=== PATIENT | male | born 1970 | race Caucasian/White ===

== ENCOUNTER 2018-04-02 17:05 | Observation (INO) | payer MEDICAID ==
[~2018-04-02] VITALS: Ht 182.9 cm; Wt 90.0 kg
[2018-04-02 17:10] VITALS: BP 130/84; PULSE 88; RESP 20; TEMP 97.4; O2SAT 100
[2018-04-02 17:23] VITALS: BP 129/85; PULSE 80; RESP 18; O2SAT 99
--- NOTE | 2018-04-02 18:02 | RADRPT ---
EXAM DATE: 04/02/2018 5:55 PM EDT AGE/SEX: 47 years / Male INDICATIONS: Left sided chest pain. CLINICAL DATA: This is the patient's initial encounter. Patient reports that signs and symptoms have been present for 1 day and indicates a pain score of 8/10. MEDICAL/SURGICAL HISTORY: None. None. COMPARISON: No prior exams available for comparison. FINDINGS: A single AP view of the chest demonstrates the lungs to be symmetrically aerated without evidence of mass, infiltrate or effusion. The cardiomediastinal contours are unremarkable. Osseous structures a re intact. There is an anterior cervical fusion plate present. CONCLUSION: No acute cardiopulmonary process. Electronically signed by: Tony Gresahm MD 04/02/2018 6:01 PM EDT
[2018-04-02 18:12] LABS: AUTOMATED NEUTROPHIL # 4.5 TH/MM3 (1.8-7.7); BASOPHIL % 0.3 % (0.0-2.0); EOSINOPHIL # 0.1 TH/MM3 (0-0.4); EOSINOPHIL % 2.1 % (0.0-4.0); HEMATOCRIT 42.5 % (39.0-51.0); HEMOGLOBIN 14.4 GM/DL (13.0-17.0); LYMPH % 24.7 % (9.0-44.0); LYMPHOCYTE # 1.7 TH/MM3 (1.0-4.8); MEAN CORPUSCULAR HEMOGLOBIN 30.2 PG (27.0-34.0); MEAN PLATELET VOLUME 8.8 FL (7.0-11.0); MONO % 6.7 % (0.0-8.0); MONOCYTE # 0.5 TH/MM3 (0-0.9); NEUT % 66.2 % (16.0-70.0); PLATELET COUNT 218 TH/MM3 (150-450); RED BLOOD COUNT 4.77 MIL/MM3 (4.50-5.90); RED CELL DISTRIBUTION WIDTH 12.6 % (11.6-17.2); WHITE BLOOD COUNT 6.9 TH/MM3 (4.0-11.0)
--- NOTE | 2018-04-02 18:25 | PD ---
HPI Chief Complaint: Neuro Symptoms/ Deficits Time Seen by Provider: 17:24 Travel History International Travel<30 days: No Contact w/Intl Traveler<30days: No Traveled to known affect area: No History of Present Illness HPI Patient presents to the emergency department complaining of chest pain and left- sided weakness. Chest pain began around noon/1 PM when he was sitting on a bench. Pain is described as being left-sided, nonradiating, 8 out of 10 no alleviating or aggravating factors, similar pain in the past and states that it was a stress attack. Also complained of left side being weak and tingling in his arms and legs. He has slurred speech, headache, dry cough, nausea, blurry vision bilaterally. He denies fever, chills, vomiting. PFSH Past Medical History High Cholesterol: Yes Cerebrovascular Accident: Yes Diabetes: Yes Patient Takes Glucophage: Yes Medical other: Yes (FIBROMYALGIA ) Past Surgical History Other Surgery: Yes Social History Alcohol Use: No Tobacco Use: No Substance Use: No Allergies-Medications (Allergen,Severity, Reaction): Coded Allergies: No Known Allergies (Unverified , 04/02/18) Reported Meds & Prescriptions Reported Meds & Active Scripts Active Reported Prazosin (Prazosin HCl) 5 Mg Cap 5 Mg PO HS Lyrica (Pregabalin) 300 Mg Cap 300 Mg PO BID Carbamazepine 200 Mg Tab 200 Mg PO HS Lamotrigine 200 Mg Tab 200 Mg PO DAILY Bupropion HCl 100 Mg Tab 300 Mg PO DAILY Metformin ER (Metformin HCl) 1,000 Mg Emily 1,000 Mg PO BID With evening meal Atorvastatin (Atorvastatin Calcium) 20 Mg Tab 20 Mg PO HS Duloxetine DR (Duloxetine HCl) 60 Mg Capdr 90 Mg PO DAILY Glimepiride 2 Mg Tab 2 Mg PO DAILY Take with breakfast or first main meal Prazosin (Prazosin HCl) 2 Mg Cap 2 Mg PO HS Review of Systems Except as stated in HPI: all other systems reviewed are Neg Physical Exam Narrative GENERAL: No acute distress. SKIN: Focused skin assessment warm/dry. HEAD: Atraumatic. Normocephalic. EYES: Pupils equal and round. No scleral icterus. No injection or drainage. Ocular muscles intact bilaterally. ENT: No nasal bleeding or discharge. Mucous membranes pink and moist. NECK: Trachea midline. No JVD. CARDIOVASCULAR: Regular rate and rhythm. No murmur appreciated. RESPIRATORY: No accessory muscle use. Clear to auscultation. Breath sounds equal bilaterally. GASTROINTESTINAL: Abdomen soft, non-tender, nondistended. Hepatic and splenic margins not palpable. MUSCULOSKELETAL: No obvious deformities. No clubbing. No cyanosis. No edema. NEUROLOGICAL: Awake and alert. No obvious cranial nerve deficits. 3/5 left upper extremity and left lower extremity. Normal speech. PSYCHIATRIC: Appropriate mood and affect; insight and judgment normal. Data Data Last Documented VS Vital Signs Date Time Temp Pulse Resp B/P (MAP) Pulse Ox O2 Delivery O2 Flow Rate FiO2 04/02/18 17:23 80 18 129/85 (100) 99 Room Air 04/02/18 17:10 97.4 Orders Orders Electrocardiogram (04/02/18 ) Electrocardiogram (04/02/18 17:30) Prothrombin Time / Inr (Pt) (04/02/18 17:30) Act Partial Throm Time (Ptt) (04/02/18 17:30) Complete Blood Count With Diff (04/02/18:30) Comprehensive Metabolic Panel (04/02/18 17:30) Creatine Kinase (Cpk) (04/02/18 17:30) Troponin I (04/02/18 17:30) Urinalysis - C+S If Indicated (04/02/18 17:30) Ct Brain W/O Iv Contrast(Rout) (04/02/18 17:30) Chest, Single Ap (04/02/18 17:30) Ecg Monitoring (04/02/18 17:30) Iv Access Insert/Monitor (04/02/18 17:30) Oximetry (04/02/18 17:30) Blood Glucose (04/02/18 17:30) Aspirin (Aspirin) (04/02/18 19:00) Nitroglycerin Sl (Nitrostat Sl) (04/02/18 19:00) Admit Order (Ed Use Only) (04/02/18 19:23) Labs Laboratory Tests Test 04/02/18 17:42 White Blood Count 6.9 TH/MM3 Red Blood Count 4.77 MIL/MM3 Hemoglobin 14.4 GM/DL Hematocrit 42.5 % Mean Corpuscular Volume 89.0 FL Mean Corpuscular Hemoglobin 30.2 PG Mean Corpuscular Hemoglobin Concent 34.0 % Red Cell Distribution Width 12.6 % Platelet Count 218 TH/MM3 Mean Platelet Volume 8.8 FL Neutrophils (%) (Auto) 66.2 % Lymphocytes (%) (Auto) 24.7 % Monocytes (%) (Auto) 6.7 % Eosinophils (%) (Auto) 2.1 % Basophils (%) (Auto) 0.3 % Neutrophils # (Auto) 4.5 TH/MM3 Lymphocytes # (Auto) 1.7 TH/MM3 Monocytes # (Auto) 0.5 TH/MM3 Eosinophils # (Auto) 0.1 TH/MM3 Basophils # (Auto) 0.0 TH/MM3 CBC Comment DIFF FINAL Differential Comment Prothrombin Time 10.0 SEC Prothromb Time International Ratio 1.0 RATIO Activated Partial Thromboplast Time 27.0 SEC Blood Urea Nitrogen 10 MG/DL Creatinine 0.67 MG/DL Random Glucose 102 MG/DL Total Protein 7.7 GM/DL Albumin 4.3 GM/DL Calcium Level 9.2 MG/DL Alkaline Phosphatase 119 U/L Aspartate Amino Transf (AST/SGOT) 10 U/L Alanine Aminotransferase (ALT/SGPT) 21 U/L Total Bilirubin 0.4 MG/DL Sodium Level 137 MEQ/L Potassium Level 3.7 MEQ/L Chloride Level 103 MEQ/L Carbon Dioxide Level 22.6 MEQ/L Anion Gap 11 MEQ/L Estimat Glomerular Filtration Rate 127 ML/MIN Total Creatine Kinase 43 U/L Troponin I LESS THAN 0.02 NG/ML MDM Medical Decision Making Medical Screen Exam Complete: Yes Emergency Medical Condition: Yes Interpretation(s) ECG: Sinus rhythm, rate 79, normal axis, and aVL, T-wave inversion in lead III and V1, LVH Labs: Normal CBC, coags, alk phos increased Last Impressions Head CT 04/02/181729 Signed Impressions: CONCLUSION: 1. No acute intracranial abnormality. Chest X-Ray 04/02/181729 Signed Impressions: CONCLUSION: No acute cardiopulmonary process. Differential Diagnosis ACS, TIA, CVA, ICH, Narrative Course Patient presents to the emergency department complaining of left-sided chest pain and left-sided weakness. Patient placed on school lunch monitor, IV access obtained, head CT/EKG/chest x-ray/labs ordered. 1847: Workup resulted. Patient complaining of L side chest pain, will give ASA 325mg po and 1 SL NTG 0.4mg. Will admit. U/A outstanding. 1917: Reassessment, strength 5/5 LUE and LLE, improved from prior exam. Patient requesting to eat b/c "I haven't eaten all day." Diagnosis Primary Impression: Chest pain Qualified Codes: R07.9 - Chest pain, unspecified Additional Impression: Left-sided weakness Admitting Information Admitting Physician Requests: Observation Condition: Stable Xin Gonzalez MD Apr 02, 2018 18:25
[2018-04-02 18:28] LABS: ALBUMIN 4.3 GM/DL (3.4-5.0); ALT (GPT) 21 U/L (12-78); AST (GOT) 10 U/L (15-37); BLOOD UREA NITROGEN 10 MG/DL (7-18); CALCIUM 9.2 MG/DL (8.5-10.1); CREATININE 0.67 MG/DL (0.60-1.30); GLOMERULAR FILTRATION RATE 127 ML/MIN (>89); GLUCOSE,RANDOM 102 MG/DL (74-106); SODIUM (NA) 137 MEQ/L (136-145)
[2018-04-02 18:29] LABS: BICARBONATE 22.6 MEQ/L (21.0-32.0); CHLORIDE 103 MEQ/L (98-107)
[2018-04-02 18:33] LABS: ALKALINE PHOSPHATASE 119 U/L (45-117); TOTAL BILIRUBIN ADULT 0.4 MG/DL (0.2-1.0); TOTAL PROTEIN 7.7 GM/DL (6.4-8.2); TROPONIN I LESS THAN 0.02 NG/ML (0.02-0.05)
--- NOTE | 2018-04-02 18:33 | RADRPT ---
EXAM DATE: 04/02/2018 6:30 PM EDT AGE/SEX: 47 years / Male INDICATIONS: Cephalgia, left sided numbness, and tingling, blurry vision. CLINICAL DATA: This is the patient's initial encounter. Patient reports that signs and symptoms have been present for 1 day and indicates a pain score of 8/10. MEDICAL/SURGICAL HISTORY: Cerebrovascular disease. Fibromyalgia. None. RADIATION DOSE: 66.34 CTDI (mGy) COMPARISON: No prior exams available for comparison. TECHNIQUE: CT of the head without contrast. Using automated exposure control and adjustment of the mA and/or kV according to patient size, radiation dose was kept as low as reasonably achievable to ob tain optimal diagnostic quality images. DICOM format image data is available electronically for revi ew and comparison. FINDINGS: Cerebrum: The ventricles are normal for age. No evidence of midline shift, mass lesion, hemorrhage or acute infarction. No extraaxial fluid collections are seen. Posterior Fossa: The cerebellum and brainstem are intact. The 4th ventricle is midline. The cerebe llopontine angle is unremarkable. Extracranial: The visualized portion of the orbits is intact. Soft tissue density left parietal scal p likely small contusion. Skull: The calvaria is intact. No evidence of skull fracture. CONCLUSION: 1. No acute intracranial abnormality. Electronically signed by: Adam Momin MD 04/02/2018 6:32 PM EDT
[2018-04-02] MEDS ORDERED: BUPR100T4 PO (18:49)
[2018-04-02] MEDS ORDERED: LAMO200T PO (18:49)
[2018-04-02] MEDS ORDERED: GLIM2TAB PO (18:49)
[2018-04-02] MEDS ORDERED: CARB200T PO (18:49)
[2018-04-02] MEDS ORDERED: METF-382 PO (18:49)
[2018-04-02] MEDS ORDERED: ATOR20TA15 PO (18:49)
[2018-04-02] MEDS ORDERED: PRAZ2CAP PO (18:49)
[2018-04-02] MEDS ORDERED: DULO1CAP3 PO (18:49)
[2018-04-02] MEDS ORDERED: PRAZ5CAP PO (18:49)
[2018-04-02] MEDS ORDERED: PREG300 PO (18:49)
[2018-04-02] MEDS ORDERED: NITROGLYCERIN 0.4 MG SL 25 TABS/BTL SL ONE (19:00)
[2018-04-02] MEDS ORDERED: ASPIRIN 325 MG TAB PO ONE (19:00)
[2018-04-02 19:56] VITALS: BP 121/62; PULSE 85; RESP 18; O2SAT 98
[2018-04-02] MEDS ORDERED: ACETAMINOPHEN 325 MG TAB PO PRN (20:15)
[2018-04-02] MEDS ORDERED: NALOXONE HCL 0.4 MG/ML AMP IV PUSH PRN (20:15)
[2018-04-02] MEDS ORDERED: SODIUM CHLORIDE 0.9% FLUSH 10 ML FLUSH IV FLUSH PRN ×2 (20:15→20:30)
[2018-04-02 20:25] LABS: BILIRUBIN, URINE NEG (NEG); BLOOD, URINE NEG (NEG); GLUCOSE,URINE NEG (NEG); KETONE, URINE TRACE mg/dL (NEG); NITRITE,URINE NEG (NEG); URINE COLOR YELLOW (YELLW/STRAW); URINE LEUKOCYTE ESTERASE NEG (NEG)
[2018-04-02] MEDS ORDERED: DEXTROSE 50% IN WATER 50 ML VIAL(D50) IV PUSH PRN (20:30)
[2018-04-02] MEDS ORDERED: GLUCAGON 1 MG/ML VIAL OTHER PRN (20:30)
[2018-04-02 20:51] VITALS: BP 107/69; PULSE 75; RESP 16; TEMP 97.8; O2SAT 98
[2018-04-02] MEDS ORDERED: ATORVASTATIN 20 MG TAB PO SCH (21:00)
[2018-04-02] MEDS ORDERED: SODIUM CHLORIDE 0.9% FLUSH 10 ML FLUSH IV FLUSH SCH (21:00)
[2018-04-02] MEDS: INSULIN ASPART SUPPLEMENTAL SCALE SQ SCH (21:00)
[2018-04-02] MEDS ORDERED: carBAMazepine 200 MG TAB PO SCH (21:00)
--- NOTE | 2018-04-02 21:10 | HHI.HP ---
[facility] Service [facility] Primary Care Physician Non-Staff Admission Diagnosis chest pain, TIA vs CVA Diagnoses: Travel History International Travel<30 Days: No Contact w/Intl Traveler <30 Da: No Traveled to Known Affected Are: No History of Present Illness 47-year-old male with past medical history significant for fibromyalgia, diabetes mellitus, depression/anxiety and neuropathy presents the emergency department for the evaluation of left-sided chest pain and left-sided numbness/ tingling with associated weakness. The patient reports that he was in his usual state of health when suddenly he felt a numbness and tingling on his left side that was accompanied by the weakness and inability to use his left upper and lower extremities. He endorses accompanying blurry vision and a headache. Positive heart palpitations. He denies any shortness of breath. He does complain of left-sided chest pain that radiates down his left arm. No fever/ chills. No abdominal pain. Positive nausea. No vomiting or diarrhea. Review of Systems Except as stated in HPI: all other systems reviewed are Neg Past Family Social History Past Medical History Fibromyalgia Diabetes mellitus Neuropathy Depression/anxiety Past Surgical History Neck fusion Appendectomy Reported Medications Reported Meds & Active Scripts Active Reported Prazosin (Prazosin HCl) 5 Mg Cap 5 Mg PO HS Lyrica (Pregabalin) 300 Mg Cap 300 Mg PO BID Carbamazepine 200 Mg Tab 200 Mg PO HS Lamotrigine 200 Mg Tab 200 Mg PO DAILY Bupropion HCl 100 Mg Tab 300 Mg PO DAILY Metformin ER (Metformin HCl) 1,000 Mg Emily 1,000 Mg PO BID With evening meal Atorvastatin (Atorvastatin Calcium) 20 Mg Tab 20 Mg PO HS Duloxetine DR (Duloxetine HCl) 60 Mg Capdr 90 Mg PO DAILY Glimepiride 2 Mg Tab 2 Mg PO DAILY Take with breakfast or first main meal Prazosin (Prazosin HCl) 2 Mg Cap 2 Mg PO HS Allergies: Coded Allergies: No Known Allergies (Unverified , 04/02/18) Family History Mother with diabetes mellitus Social History Denies alcohol, tobacco and illicit drugs Physical Exam Vital Signs Vital Signs Date Time Temp Pulse Resp B/P (MAP) Pulse Ox O2 Delivery O2 Flow Rate FiO2 04/02/18 20:51 97.8 75 16 107/69 (82) 98 04/02/18 20:34 04/02/18 19:56 85 18 121/62 (81) 98 Room Air 04/02/18 17:23 80 18 129/85 (100) 99 Room Air 04/02/18 17:23 80 18 99 Room Air 04/02/18 17:10 97.4 88 20 130/84 (99) 100 Physical Exam GENERAL: male sitting up in bed SKIN: No rashes, ecchymoses or lesions. Cool and dry. HEAD: Atraumatic. Normocephalic. No temporal or scalp tenderness. EYES: Pupils equal round and reactive. Extraocular motions intact. No scleral icterus. No injection or drainage. ENT: Nose without bleeding, purulent drainage or septal hematoma. Throat without erythema, tonsillar hypertrophy or exudate. Uvula midline. Airway patent. NECK: Trachea midline. No JVD or lymphadenopathy. Supple, nontender, no meningeal signs. CARDIOVASCULAR: Regular rate and rhythm without murmurs, gallops, or rubs. RESPIRATORY: Clear to auscultation. Breath sounds equal bilaterally. No wheezes , rales, or rhonchi. GASTROINTESTINAL: Abdomen soft, non-tender, nondistended. No hepato-splenomegaly , or palpable masses. No guarding. MUSCULOSKELETAL: Extremities without clubbing, cyanosis, or edema. No joint tenderness, effusion, or edema noted. No calf tenderness. NEUROLOGICAL: Awake and alert. Cranial nerves II through XII intact. Normal speech. 4/5 left upper extremity strength in the biceps. Finger international recruiter strength and shoulder strength 5/5. Remainder of strength exam 5/5. Laboratory Laboratory Tests Test 04/02/18 17:42 04/02/18 19:58 White Blood Count 6.9 Red Blood Count 4.77 Hemoglobin 14.4 Hematocrit 42.5 Mean Corpuscular Volume 89.0 Mean Corpuscular Hemoglobin 30.2 Mean Corpuscular Hemoglobin Concent 34.0 Red Cell Distribution Width 12.6 Platelet Count 218 Mean Platelet Volume 8.8 Neutrophils (%) (Auto) 66.2 Lymphocytes (%) (Auto) 24.7 Monocytes (%) (Auto) 6.7 Eosinophils (%) (Auto) 2.1 Basophils (%) (Auto) 0.3 Neutrophils # (Auto) 4.5 Lymphocytes # (Auto) 1.7 Monocytes # (Auto) 0.5 Eosinophils # (Auto) 0.1 Basophils # (Auto) 0.0 CBC Comment DIFF FINAL Differential Comment Prothrombin Time 10.0 Prothromb Time International Ratio 1.0 Activated Partial Thromboplast Time 27.0 Blood Urea Nitrogen 10 Creatinine 0.67 Random Glucose 102 Total Protein 7.7 Albumin 4.3 Calcium Level 9.2 Alkaline Phosphatase 119 Aspartate Amino Transf (AST/SGOT) 10 Alanine Aminotransferase (ALT/SGPT) 21 Total Bilirubin 0.4 Sodium Level 137 Potassium Level 3.7 Chloride Level 103 Carbon Dioxide Level 22.6 Anion Gap 11 Estimat Glomerular Filtration Rate 127 Total Creatine Kinase 43 Troponin I LESS THAN 0.02 Urine Color YELLOW Urine Turbidity CLEAR Urine pH 7.0 Urine Specific [place] 1.005 Urine Protein NEG Urine Glucose (UA) NEG Urine Ketones TRACE Urine Occult Blood NEG Urine Nitrite NEG Urine Bilirubin NEG Urine Urobilinogen LESS THAN 2 Urine Leukocyte Esterase NEG Urine RBC LESS THAN 1 Urine WBC 1 Microscopic Urinalysis Comment CATH-CULT NOT IND Result Diagram: 04/02/18 1742 04/02/18 174 Caprini VTE Risk Assessment Caprini VTE Risk Assessment: No/Low Risk (score <= 1) Caprini Risk Assessment Model Point Value = 1 Point Value = 2 Point Value = 3 Point Value = 5 Age 41-60 Minor surgery BMI > 25 kg/m2 Swollen legs Varicose veins or History of unexplained or recurrent spontaneous Oral contraceptives or hormone replacement Sepsis (< 1 month) Serious lung disease, including pneumonia (< 1 month) Abnormal pulmonary function Acute myocardial infarction Congestive heart failure (< 1 month) History of inflammatory bowel disease Medical patient at bed rest Age 61-74 Arthroscopic surgery Major open surgery (> 45 min) Laparoscopic surgery (> 45 min) Malignancy Confined to bed (> 72 hours) Immobilizing plaster cast Central venous access Age >= 75 History of VTE Family history of VTE Factor V Leiden Prothrombin [id number] Lupus anticoagulant Anticardiolipin antibodies Elevated serum homocysteine Heparin-induced thrombocytopenia Other congenital or acquired thrombophilia Stroke (< 1 month) Elective arthroplasty Hip, pelvis, or leg fracture Acute spinal cord injury (< 1 month) Prophylaxis Regimen Total Risk Factor Score Risk Level Prophylaxis Regimen 0-1 Low Early ambulation 2 Moderate Order ONE of the following: *Sequential Compression Device (SCD) *Heparin 5000 units SQ BID 3-4 Higher Order ONE of the following medications: *Heparin 5000 units SQ TID *Enoxaparin/Lovenox 40 mg SQ daily (WT < 150 kg, CrCl > 30 mL/min) *Enoxaparin/Lovenox 30 mg SQ daily (WT < 150 kg, CrCl > 10-29 mL/min) *Enoxaparin/Lovenox 30 mg SQ BID (WT < 150 kg, CrCl > 30 mL/min) AND/OR *Sequential Compression Device (SCD) 5 or more Highest Order ONE of the following medications: *Heparin 5000 units SQ TID (Preferred with Epidurals) *Enoxaparin/Lovenox 40 mg SQ daily (WT < 150 kg, CrCl > 30 mL/min) *Enoxaparin/Lovenox 30 mg SQ daily (WT < 150 kg, CrCl > 10-29 mL/min) *Enoxaparin/Lovenox 30 mg SQ BID (WT < 150 kg, CrCl > 30 mL/min) AND *Sequential Compression Device (SCD) Assessment and Plan Assessment and Plan Assessment/plan: 1. Left-sided numbness/weakness/blurry vision/TIA CT of the head negative for acute intracranial process MRI/MRA, carotid ultrasound and echo pending Neurology consulted, appreciate assistance 2. Left-sided chest pain EKG without signs of ischemia, personally reviewed Initial troponin negative ACS rule out pending; serial troponins/EKG 3. Diabetes mellitus Holding home metformin/glimepiride Sliding-scale insulin Monitor blood glucose 4. Depression/anxiety Continue home medications FEN N.p.o. NS at 70 cc/hour Electrolytes: Monitor and replete as needed Lucie Dickson MD Apr 02, 2018 21:10
[2018-04-02 22:51] LABS: HEMOGLOBIN A1C 7.1 % (4.3-6.0)
[2018-04-02] MEDS: SODIUM CHLOR 0.9% 1000 ML INJ 1,000 ML IV SCH (23:19)
[2018-04-02] MEDS: SODIUM CHLORIDE 0.9% FLUSH 10 ML FLUSH IV FLUSH SCH (23:19)
[2018-04-02] MEDS: PREGABALIN 100 MG CAP PO SCH (23:20)
[2018-04-03] VITALS (7 sets, daily range): BP systolic 108–126; BP diastolic 72–85; PULSE 70–84; RESP 15–18; TEMP 97.5–98; O2SAT 97–98
[2018-04-03 00:49] LABS: TROPONIN I LESS THAN 0.02 NG/ML (0.02-0.05)
[2018-04-03] MEDS ORDERED: MORPHINE SULFATE 4 MG/ML INJ IV PUSH ONE (03:00)
[2018-04-03] MEDS ORDERED: NITROGLYCERIN 2% OINT 1 GM PACKET TOPICAL ONE (03:00)
[2018-04-03 05:49] LABS: AUTOMATED NEUTROPHIL # 4.6 TH/MM3 (1.8-7.7); BASOPHIL % 0.2 % (0.0-2.0); EOSINOPHIL # 0.1 TH/MM3 (0-0.4); EOSINOPHIL % 2.1 % (0.0-4.0); HEMATOCRIT 42.6 % (39.0-51.0); HEMOGLOBIN 14.1 GM/DL (13.0-17.0); LYMPH % 25.3 % (9.0-44.0); LYMPHOCYTE # 1.8 TH/MM3 (1.0-4.8); MEAN CELL VOLUME 90.1 FL (80.0-100.0); MEAN CORPUSCULAR HEMOGLOBIN 29.7 PG (27.0-34.0); MEAN PLATELET VOLUME 8.5 FL (7.0-11.0); MONO % 5.7 % (0.0-8.0); MONOCYTE # 0.4 TH/MM3 (0-0.9); NEUT % 66.7 % (16.0-70.0); PLATELET COUNT 196 TH/MM3 (150-450); RED BLOOD COUNT 4.73 MIL/MM3 (4.50-5.90); RED CELL DISTRIBUTION WIDTH 12.9 % (11.6-17.2)
[2018-04-03 06:16] LABS: BICARBONATE 25.6 MEQ/L (21.0-32.0); BLOOD UREA NITROGEN 11 MG/DL (7-18); CALCIUM 8.7 MG/DL (8.5-10.1); CHLORIDE 103 MEQ/L (98-107); CREATININE 0.78 MG/DL (0.60-1.30); GLOMERULAR FILTRATION RATE 106 ML/MIN (>89); GLUCOSE,RANDOM 121 MG/DL (74-106); SODIUM (NA) 138 MEQ/L (136-145)
[2018-04-03 06:17] LABS: CHOLESTEROL 105 MG/DL (120-200)
[2018-04-03 06:21] LABS: CHOLESTEROL/ HDL RATIO 2.46 RATIO; HDL CHOLESTEROL 42.6 MG/DL (40.0-60.0); LDL CHOLESTEROL 41 MG/DL (0-99); TRIGLYCERIDES 108 MG/DL (42-150); TROPONIN I LESS THAN 0.02 NG/ML (0.02-0.05)
[2018-04-03] MEDS ORDERED: LORazepam 1 MG TAB PO ONE (08:45)
[2018-04-03] MEDS: INSULIN ASPART SUPPLEMENTAL SCALE SQ SCH ×3 (08:49→17:24)
[2018-04-03] MEDS ORDERED: lamoTRIgine 100 MG TAB PO SCH (09:00)
[2018-04-03] MEDS: PREGABALIN 100 MG CAP PO SCH (09:00)
[2018-04-03] MEDS ORDERED: buPROPion HCL 100 MG TAB PO SCH (09:00)
[2018-04-03] MEDS ORDERED: DULoxetine HCl DR 30 MG CAP PO SCH (09:00)
[2018-04-03] MEDS ORDERED: ASPIRIN 325 MG TAB PO SCH (09:00)
[2018-04-03] MEDS ORDERED: SODIUM CHLOR 0.9% 1000 ML INJ 1,000 ML IV SCH (09:34)
[2018-04-03] MEDS: SODIUM CHLORIDE 0.9% FLUSH 10 ML FLUSH IV FLUSH SCH (09:41)
--- NOTE | 2018-04-03 09:52 | RADRPT ---
EXAM DATE: 04/03/2018 9:26 AM EDT AGE/SEX: 47 years / Male INDICATIONS: Left sided numbness and tingling with blurred vision and palpitations. CLINICAL DATA: This is the patient's initial encounter. Patient reports that signs and symptoms have been present for 1 day and indicates a pain score of 0/10. MEDICAL/SURGICAL HISTORY: Hypercholesterolemia. Diabetes. Cerebrovascular disease. Fibromyal kota. Appendectomy. Fusion, cervical. COMPARISON: No prior exams available for comparison. VELOCITY PARAMETERS: ICA/CCA Ratio: Right 0.8 , Left 0.9 ICA: Right 67.7 cm/sec, Left 62.5 cm/sec CCA: Right 79.8 cm/sec, Left 72.3 cm/sec ECA: Right 75.4 cm/sec, Left 72.3 cm/sec Vertebral: Right 32.5 cm/sec antegrade, Left 26.1 cm/sec antegrade FINDINGS: Right Carotid: No significant plaque is visualized.The waveforms are within normal limits. Left Carotid: No significant plaque is visualized. The waveforms are within normal limits. Other: None. CONCLUSION: Negative carotid ultrasound examination. Electronically signed by: Tony Gresham MD 04/03/2018 9:51 AM EDT
--- NOTE | 2018-04-03 10:00 | MB ---
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 He lives up in [place]. He does not take an aspirin a day ever since his stroke and has not been taking an aspirin. About 1 p.m. yesterday had chest pain, which is unusual for him. He had left-sided numbness face, arm, and leg and also felt weak where he could not put pressure on his left leg and felt like his left arm was not as strong as the right side, some blurry vision. This is the first time he has had any symptoms on the left side in 10 years. Does not usually have chest pain. Feels like his chest is pounding. SOCIAL HISTORY: He is not a smoker or drinker, lives with his . FAMILY HISTORY: Negative for cancer, seizure or stroke. REVIEW OF SYSTEMS: He denied any hypertension, hypercholesterolemia, LA, stent, angioplasty, AFib, Coumadin, renal, hepatic or pulmonary disease, thyroid disease, lupus, ulcer, cancer, seizure. ALLERGIES: HE HAS NO KNOWN DRUG ALLERGIES. MEDICATIONS: Prazosin, Lyrica 300 b.i.d., Tegretol 200 at bedtime, Lamictal 200 a day, bupropion 300 a day, metformin, atorvastatin, duloxetine 90 mg a day, glyburide. PHYSICAL EXAMINATION: VITAL SIGNS: His EKG shows sinus rhythm. He is in sinus rhythm overnight. Afebrile, 72, 17, 116/74. Feels like his heart is pounding now, but on his cardiac exam, I do not detect a murmur. Regular rhythm and rate. No carotid bruits. NEUROLOGIC: Pupils are equal. Visual hua are full. Extraocular movements intact without nystagmus. Face is symmetric with decreased sensation on the left compared to the right to pinprick. Tongue was midline. There is no drift. He has normal strength in bilateral deltoid, triceps, finger extensors, fast finger movements, iliopsoas, tibialis anterior. DTRs are trace throughout. Toes downgoing bilaterally. Pinprick and vibratory sense are intact in the feet and throughout, except he has got diminished pinprick on the left leg compared to the right, although the left hand pinprick was intact and symmetric with the right. pinprick compared to the right. He is not ataxic on [id number]. He can actually walk and gait is fairly steady, although he limps slightly. LABORATORY DATA: CBC is normal. Urine drug screen positive for marijuana only. UA negative. Coags normal. Basic metabolic profile, CPK, cholesterol, troponin, CBC all normal. Chest x-ray and CAT scan of the brain negative. IMPRESSION: I would put him on a baby aspirin a day and that has been done. I do not see a need for Lipitor, unless the medical team thinks he has cardiac problems. He is having chest pain. I would recommend having cardiology clear him with a history of stroke and diabetes. We will check an MRI of the brain, but I think it is unlikely that he has actually had a stroke here, although he has some symptoms of that, which is treated with the aspirin at this time. We will check an MRA of the neck and [place] and echo, some additional blood work, a hypercoagulable screen. If he is cleared by cardiology and if his echo and MRIs and MRAs look fine, he could be discharged later today. I would hesitate to give him any narcotics unless it is deemed medically necessary from a cardiac point of view, but I do not see anything new on the exam here that indicates he had an acute stroke here, though his symptoms sound like it could have been. The other possibility would be somewhat of a panic attack. MD VANDANA Aguilar/MARIA LUISA , 09:35 AM , 09:58 AM
[2018-04-03] MEDS: SODIUM CHLOR 0.9% 1000 ML INJ 1,000 ML IV SCH (11:18)
[2018-04-03] MEDS ORDERED: GADODIAMIDE PF 287 MG/ML 20 ML VIAL (for RAD MRI) IVCONTRAST ONE (12:15)
--- NOTE | 2018-04-03 12:38 | HHI.PR ---
Subjective Remarks Nursing denies any deterioration since last night. Patient says he feels much better now. Objective Vital Signs Date Time Temp Pulse Resp B/P (MAP) Pulse Ox O2 Delivery O2 Flow Rate FiO2 04/03/18 10:06 97.6 70 18 97 04/03/18 09:42 126/81 (96) 04/03/18 07:34 84 04/03/18 04:22 98.0 72 17 116/74 (88) 97 04/03/18 00:21 97.5 70 15 108/72 (84) 98 04/02/18 20:51 97.8 75 16 107/69 (82) 98 04/02/18 20:34 04/02/18 19:56 85 18 121/62 (81) 98 Room Air 04/02/18 17:23 80 18 129/85 (100) 99 Room Air 04/02/18 17:23 80 18 99 Room Air 04/02/18 17:10 97.4 88 20 130/84 (99) 100 I/O 04/02/18 04/02/18 04/02/18 04/03/18 04/03/18 04/03/18 07:00 15:00 23:00 07:00 15:00 23:00 Output Total 600 ml Balance -600 ml Output Urine Total 600 ml Result Diagram: 04/03/18 0513 04/03/18 0513 Objective Remarks Sounds regular rate rhythm, no murmurs No facial droop, no slurred speech A/P Assessment and Plan Chest pain -Possibly due to anxiety/panic attack but will perform nuclear stress test. Cardiac enzymes have been negative 3. Facial numbness -Possible TIA but unlikely, most likely panic/anxiety attack per neurology's assessment. Will obtain MRI studies. addendum: lexiscan neg, MRI studies unremarkable. stable for discharge from neuro standpoint. Pt to f/u with PCP. Likely impression is anxiety/panic attack. Juan Luis Carranza MD Apr 03, 2018 12:38
--- NOTE | 2018-04-03 12:53 | RADRPT ---
EXAM DATE: 04/03/2018 12:11 PM EDT AGE/SEX: 47 years / Male INDICATIONS: Cephalgia. Left sided numbness. CLINICAL DATA: This is the patient's subsequent encounter. Patient reports that signs and symptoms h ave been present for 2 days and indicates a pain score of 0/10. MEDICAL/SURGICAL HISTORY: Diabetes mellitus type II. Appendectomy. COMPARISON: No prior exams available for comparison. TECHNIQUE: Multiplanar, multisequence examination of the brain was performed without and with 20 ml O mniscan (gadodiamide) contrast as a single exam dose. FINDINGS: Cerebrum: The ventricles are normal for age. No evidence of midline shift, mass lesion, hemorrhage or acute infarction. No extraaxial fluid collections are seen. The pituitary gland and suprasellar cistern are normal in configuration. White Matter: No significant signal abnormalities are seen in the white matter. Posterior Fossa: The cerebellum and brainstem are intact. The 4th ventricle is midline. The cerebel lopontine angle is unremarkable. The cerebellar tonsils are normal in position. Diffusion Imaging: No focal areas of restricted diffusion are seen. No evidence of acute infarction . Extracranial: The visualized portions of the orbits are unremarkable. There is mucosal thickening in the left ethmoidal air cells, sphenoid sinuses and maxillary sinuses. Post Contrast: No abnormal areas of parenchymal or dural enhancement. No evidence of blood-brain ba rrier breakdown. CONCLUSION: 1. No acute hemorrhage, mass or infarction. 2. Mucosal thickening in the paranasal sinuses. Electronically signed by: Oskar Serrano MD 04/03/2018 12:51 PM EDT
--- NOTE | 2018-04-03 13:06 | ECHRPT ---
Indication: CONCLUSIONS Normal left ventricular size. Wall thickness is normal. The left ventricular systolic function is low normal with an estimated ejection fraction in the rang e of 50%. Mitral annular calcification is present. BP: / HR: Rhythm: MEASUREMENTS (Male / Female) Normal Values Technical Quality: 2D ECHO LV Diastolic Diameter PLAX 4.8 cm 4.2 - 5.9 / 3.9 - 5.3 cm LV Systolic Diameter PLAX 3.8 cm IVS Diastolic Thickness 1.0 cm 0.6 - 1.0 / 0.6 - 0.9 cm LVPW Diastolic Thickness 0.8 cm 0.6 - 1.0 / 0.6 - 0.9 cm LV Relative Wall Thickness 0.4 RV Internal Dim ED PLAX 2.4 cm M-MODE Aortic Root Diameter MM 3.4 cm AV Cusp Separation MM 1.9 cm DOPPLER Mitral E Point Velocity 69.1 cm/s Mitral A Point Velocity 44.9 cm/s Mitral E to A Ratio 1.5 TR Peak Velocity 202.7 cm/s TR Peak Gradient 16.4 mmHg FINDINGS LEFT VENTRICLE Normal left ventricular size. Wall thickness is normal. The left ventricular systolic function is low normal with an estimated ejection fraction in the rang e of 50%. RIGHT VENTRICLE Normal right ventricular size and systolic function. LEFT ATRIUM The left atrial size is normal. RIGHT ATRIUM The right atrial size is normal. ATRIAL SEPTUM Normal atrial septal thickness without atrial level shunting by limited color doppler interrogation. AORTA The aortic root and proximal ascending aorta are normal in size on limited imaging. MITRAL VALVE Mitral annular calcification is present. AORTIC VALVE Trileaflet aortic valve. No aortic valve stenosis or regurgitation. TRICUSPID VALVE Structurally normal tricuspid valve. No tricuspid valve stenosis or regurgitation. PULMONARY VALVE The pulmonary valve is not well visualized. VESSELS The inferior vena cava is normal in size. PERICARDIUM No pericardial effusion. Case Summers MD, FACC, FSCAI (Electronically Signed) Final Date:03 April 2018 13:05
--- NOTE | 2018-04-03 13:57 | RADRPT ---
EXAM DATE: 04/03/2018 12:08 PM EDT AGE/SEX: 47 years / Male INDICATIONS: . Left sided numbness. CLINICAL DATA: This is the patient's subsequent encounter. Patient reports that signs and symptoms h ave been present for 2 days and indicates a pain score of 0/10. MEDICAL/SURGICAL HISTORY: Diabetes mellitus type II. Appendectomy. [place] [facility] [place]O [place]AST[place] 04/03/2018. . TECHNIQUE: 3D [id number] MRA was performed. Source images, multiplanar STS MIP, and 3D volum e MIP reconstructions were reviewed. FINDINGS: There is excellent visualization of the major intracranial arteries out to the second-order branch ve ssels. There is no evidence for aneurysm, vessel truncation or stenosis, and no evidence for vascula r malformation. CONCLUSION: Negative MRA. Electronically signed by: Tony Gresham MD 04/03/2018 1:56 PM EDT
--- NOTE | 2018-04-03 13:59 | RADRPT ---
EXAM DATE: 04/03/2018 12:22 PM EDT AGE/SEX: 47 years / Male INDICATIONS: . Left sided numbness. CLINICAL DATA: This is the patient's subsequent encounter. Patient reports that signs and symptoms h ave been present for 2 days and indicates a pain score of 0/10. MEDICAL/SURGICAL HISTORY: Diabetes mellitus type II. Appendectomy. COMPARISON: No prior exams available for comparison. TECHNIQUE: 20 ml Omniscan (gadodiamide) contrast infused MRA (single exam dose) of the extracranial circulation was performed using a neurovascular coil. Postprocessing was performed, including rotat ing sub-volume maximum intensity projections of each carotid artery, rotating full-volume maximum int ensity projections of both carotid arteries, sagittal and coronal sliding thin-slab reformations of e ach carotid artery, and left oblique sliding thin-slab reformation through the aortic arch to include the origin of the arch branch vessels. FINDINGS: Aortic Arch : The origins of the great vessels are normal. The left vertebral artery arises directl y from the aortic arch just proximal to the left subclavian artery. No evidence of ostial narrowing. Right Carotid : The common carotid artery is intact. The carotid bulb has a normal configuration wi thout ulceration or narrowing. The internal carotid artery lumen is smooth without stenosis. The ex ternal carotid artery is intact. Left Carotid : The common carotid artery is intact. The carotid bulb has a normal configuration wit hout ulceration or narrowing. The internal carotid artery lumen is smooth without stenosis. The ext ernal carotid artery is intact. Vertebrals : The vertebral arteries have a symmetric diameter. No stenotic lesions are seen. CONCLUSION: Negative MRA of the neck. Percent stenosis is calculated using the diameter of the stenotic region over the diameter of the nor mal distal internal carotid artery Electronically signed by: Tony Gresham MD 04/03/2018 1:58 PM EDT
[2018-04-03] MEDS ORDERED: REGADENOSON INJ 0.4 MG/5 ML SYR ONE (14:11)
[2018-04-03 14:50] LABS: FOLATE 17.6 NG/ML (3.1-17.5); FREE T4 1.16 NG/DL (0.76-1.46)
--- NOTE | 2018-04-03 15:46 | HHI.DCPOC ---
Discharge Care Plan Diagnosis: (1) Chest pain (2) Left-sided weakness Goals to Promote Your Health * To prevent worsening of your condition and complications * To maintain your health at the optimal level Directions to Meet Your Goals Take your medications as prescribed Follow your dietary instruction Follow activity as directed Keep your appointments as scheduled Take your immunizations and boosters as scheduled If your symptoms worsen call your PCP, if no PCP go to Urgent Care Center or Emergency Room Smoking is Dangerous to Your Health. Avoid second hand smoke Call the 24-hour hour crisis hotline for domestic abuse at Juan Luis Carranza MD Apr 03, 2018 15:46
[2018-04-03] MEDS ORDERED: PROT40TA PO (15:49)
--- NOTE | 2018-04-03 16:51 | RADRPT ---
EXAM DATE: 04/03/2018 3:47 PM EDT AGE/SEX: 47 years / Male INDICATIONS:Angina. . Chest pain. CLINICAL DATA: This is the patient's initial encounter. Patient reports that signs and symptoms have been present for 1 day and indicates a pain score of 0/10. MEDICAL/SURGICAL HISTORY: Diabetes mellitus type II. Hypertension. Cerebrovascular disease. A ppendectomy. Fusion, cervical. COMPARISON: No prior exams available for comparison. DOSE: 8.5 mCi Tc 99m Myoview at rest 27.0 mCi [id number] at stress 0.4 mg Lexiscan STRESS SYMPTOMS: Lightheaded. EJECTION FRACTION: 64 % TECHNIQUE: The patient underwent pharmacologic stress with infusion of prescribed dose. Continuous ECG tracing was monitored during stress. Gated SPECT imaging was performed after stress and conventi onal SPECT imaging was performed at rest. The examination was performed on a SPECT/CT scanner, both attenuation and non-corrected datasets were reviewed. FINDINGS: Distribution: The maximum perfused segment at stress is in the lateral wall. Perfusion Study: The pattern of perfusion at stress is within normal limits with regional variation s perfusion within 25%. The pattern of perfusion at stress and rest is unchanged without evidence of redistribution. The sum stress score is 2. Gated Study: There are intact wall motion and wall thickening without hypokinetic or dyskinetic segm ents. The ejection fraction is calculated at 64%. RISK CATEGORY: Low (<1% Annual Motality Rate) CONCLUSION: 1. No evidence of stress-induced ischemia. 2. Intact wall motion with 64% ejection fraction. Electronically signed by: Vikas Cardona MD 04/03/2018 4:50 PM EDT
--- NOTE | 2018-04-03 18:47 | EKG ---
Date Performed: 04/02/2018 Time Performed: 22:40:07 PTAGE: 47 years EKG: Sinus rhythm MODERATE VOLTAGE CRITERIA FOR LVH, CONSIDER NORMAL VARIANT POSSIBLE LATERAL MYOCARDIAL INFARCTION AB NORMAL ECG Since the PREVIOUS TRACING , no significant change noted PREVIOUS TRACIN04/02/2018 17.24 DOCTOR: Carley Cedillo Interpretating Date/Time 04/03/2018 18:45:22
--- NOTE | 2018-04-03 18:47 | EKG ---
Date Performed: 04/02/2018 Time Performed: 17:24:53 PTAGE: 47 years EKG: Sinus rhythm MINIMAL VOLTAGE CRITERIA FOR LVH, CONSIDER NORMAL VARIANT POSSIBLE LATERAL MYOCARDIAL INFARCTION BOR DERLINE ECG NO PREVIOUS TRACING DOCTOR: Carley Cedillo Interpretating Date/Time 04/03/2018 18:45:12
--- NOTE | 2018-04-03 18:48 | EKG ---
Date Performed: 04/03/2018 Time Performed: 02:46:30 PTAGE: 47 years EKG: Sinus rhythm POSSIBLE LATERAL MYOCARDIAL INFARCTION ABNORMAL ECG Since the PREVIOUS TRACING , no significant change noted PREVIOUS TRACIN04/02/2018 22.40 DOCTOR: Carley Cedillo Interpretating Date/Time 04/03/2018 18:45:32
[2018-04-05 03:49] LABS: ANTI-THROMBIN III ACT 102 (80-120)
[2018-04-05 07:52] LABS: DRVVT 1:1 MIX ND (CORRECTED); DRVVT CONFIRM ND (NEGATIVE); HEXAGONAL PHASE CONFIRM ND (NEGATIVE)
[2018-04-05 23:51] LABS: FACTOR VIII(8) ACTIVITY 87 (50-180)
[2018-04-07 14:34] LABS: CARDIOLIPIN IGG AB <9.4 GPL; CARDIOLIPIN IGM AB 13.6 MPL
[2018-04-08 17:51] LABS: PROTEIN C ACTIVITY 154 % (70 - 150); PROTEIN S ACTIVITY 102 % (65 - 160)
== END 2018-04-03 18:37 | disposition home or self-care (01) ==
LOC: NEPE 17:05 → NEDA 19:25 → NEPFCDU 20:43
PROVIDERS: ADMIT Hospitalist; ATTEND Hospitalist
DX: R53.1 Weakness (principal); R20.0 Anesthesia of skin; H53.8 Other visual disturbances; R07.89 Other chest pain; E11.40 Type 2 diabetes mellitus with diabetic neuropathy, unspecified; F41.8 Other specified anxiety disorders; R51 Headache; R11.0 Nausea; R94.31 Abnormal electrocardiogram [ECG] [EKG]; R00.2 Palpitations; M79.7 Fibromyalgia; F43.10 Post-traumatic stress disorder, unspecified; Z79.899 Other long term (current) drug therapy; Z86.73 Personal history of transient ischemic attack (TIA), and cerebral infarction without residual deficits; Z79.84 Long term (current) use of oral hypoglycemic drugs; Z98.1 Arthrodesis status
CPT/HCPCS: 70450; 70544; 70548; 70553; 71045; 78452; 80048; 80053; 80061; 80307; 81001; 81240; 81241; 81291; 82550; 82607; 82746; 82948; 83036; 84439; 84443; 84484; 85025; 85240; 85300; 85303; 85306; 85610; 85613; 85652; 85730; 86038; 86147; 86592; 93005; 93017; 93306; 93880; 96361; 96374; 97162; 99285; A9502; A9579; G0378; G8987; G8988; J2270; J2785; J7030